=== PATIENT | male | born 1990 ===

== ENCOUNTER 2017-05-26 12:25 | Inpatient (IN) | payer OTHER ==
[2017-05-26] MEDS ORDERED: EPINEPHrine 1:1,000 1 MG/1 ML - 30ML VIAL (INJECTION) SQ ONE ×3 (12:41→17:03)
--- NOTE | 2017-05-26 12:41 | PDOC ---
History of Present Illness - General History Source: Patient Exam Limitations: No Limitations - History of Present Illness Initial Comments: 05/26/17 12:48 The patient is a 26 year old male presenting with his parents, with a significant past medical history of eczema, seasonal allergies and asthma, who presents to the emergency department with an allergic reaction and shortness of breath onset 2 hours prior to presentation. He reports that upon the onset of his symptoms, he took 50 mg of Benadryl, with minimal relief. He states that he usually take divya and uses and inhaler on baseline. He reports that he does feel as if his throat is closing. The patient denies chest pain, headache and dizziness. Denies fever, chills, nausea, vomit, diarrhea and constipation. Denies dysuria, frequency, urgency and hematuria. Allergies: None Past surgical history: None reported Social history: No alcohol, tobacco or drug use reported <Kaushik Kohler - Last Filed: 05/26/17 12:49> <Naye Shin - Last Filed: 05/26/17 22:52> - General Chief Complaint: Allergic Reaction Stated Complaint: ALLERGIC REACTION Time Seen by Provider: 05/26/17 12:38 Past History <Kaushik Kohler - Last Filed: 05/26/17 12:49> - Past Medical History Asthma: Yes Other medical history: seasonal allergy, eczema - Psycho/Social/Smoking Cessation Hx Anxiety: No Suicidal Ideation: No Smoking History: Never smoked Have you smoked in the past 12 months: No Information on smoking cessation initiated: No Hx Alcohol Use: No Drug/Substance Use Hx: No Substance Use Type: None <Naye Shin - Last Filed: 05/26/17 22:52> - Past Medical History Allergies/Adverse Reactions: Allergies Allergy/AdvReac Type Severity Reaction Status Date / Time No Known Allergies Allergy Verified 05/26/17 12:29 Review of Systems - Review of Systems Able to Perform ROS?: Yes Comments:: 05/26/17 12:48 GENERAL/CONSTITUTIONAL: No fever or chills. No weakness. HEAD, EYES, EARS, NOSE AND THROAT: No change in vision. No ear pain or discharge. No sore throat. CARDIOVASCULAR: (+) Shortness of breath. No chest pain RESPIRATORY: No cough, wheezing, or hemoptysis. GASTROINTESTINAL: No nausea, vomiting, diarrhea or constipation. GENITOURINARY: No dysuria, frequency, or change in urination. MUSCULOSKELETAL: No joint or muscle swelling or pain. No neck or back pain. SKIN: No rash NEUROLOGIC: No headache, vertigo, loss of consciousness, or change in strength/ sensation. ENDOCRINE: No increased thirst. No abnormal weight change HEMATOLOGIC/LYMPHATIC: No anemia, easy bleeding, or history of blood clots. ALLERGIC/IMMUNOLOGIC: (+) Diffused hives. <Kaushik Kohler - Last Filed: 05/26/17 12:49> *Physical Exam - Vital Signs Last Vital Signs Temp Pulse Resp BP Pulse Ox 98.0 F 108 H 22 129/61 100 05/26/17 12:30 05/26/17 12:30 05/26/17 12:30 05/26/17 12:30 05/26/17 12:30 - Physical Exam Comments: 05/26/17 12:47 GENERAL: Awake, alert, and fully oriented, in no acute distress HEAD: No signs of trauma, normocephalic, atraumatic EYES: PERRLA, EOMI, sclera anicteric, conjunctiva clear ENT: (+) Swollen uvula. Auricles normal inspection, hearing grossly normal, nares patent, oropharynx clear without exudates. Moist mucosa NECK: Normal ROM, supple, no lymphadenopathy, JVD, or masses LUNGS: No distress, speaks full sentences, clear to auscultation bilaterally HEART: Regular rate and rhythm, normal S1 and S2, no murmurs, rubs or gallops, peripheral pulses normal and equal bilaterally. ABDOMEN: Soft, nontender, normoactive bowel sounds. No guarding, no rebound. No masses EXTREMITIES: Normal inspection, Normal range of motion, no edema. No clubbing or cyanosis. NEUROLOGICAL: Cranial nerves II through XII grossly intact. Normal speech, normal gait, no focal sensorimotor deficits SKIN: Warm, Dry, normal turgor, no rashes or lesions noted. <Kaushik Kohler - Last Filed: 05/26/17 12:49> - Vital Signs Last Vital Signs Temp Pulse Resp BP Pulse Ox 98.0 F 108 H 22 129/61 100 05/26/17 12:30 05/26/17 12:30 05/26/17 12:30 05/26/17 12:30 05/26/17 12:30 <Naye Shin - Last Filed: 05/26/17 22:52> ED Treatment Course - LABORATORY CBC & Chemistry Diagram: 05/26/17 13:20 05/26/17 13:20 <Naye Shin - Last Filed: 05/26/17 22:52> Medical Decision Making - Medical Decision Making 05/26/17 17:21 26-year-old male with a history of environmental allergies presented with HIVES and complaint of throat closing He took by mouth Benadryl before arrival, but his symptoms did not resolve, so he came to the emergency department Past medical history essentially negative with the exception of his environmental allergies Past surgical history none- Exam revealed diffuse hives, torso, face and extremities Mildly swollen uvula No acute wheezing Patient has received epi 3, IV steroids, IV Benadryl and still has uvula swelling.Because of concern for airway issues pt was admitted to ICU after acceptance by Teresa , ICU PA Patient is able to swallow liquids with no problem. He is not tripoding, not in any acute distress 05/26/17 22:49 CAT scan of the neck showed normal uvula, no radiodense foreign body, no abscess or focal fluid collection, unremarkable. Tonsillar fossa, epiglottis, thyroid gland, parotid and submandibular glands. Visualized paranasal sinuses and mastoid air cells clear. Case discussed with Dr. Ragsdale <Naye Shin - Last Filed: 05/26/17 22:52> *DC/Admit/Observation/Transfer - Attestations Scribe Attestion: 05/26/17 12:47 Documentation prepared by Kaushik Kohler, acting as medical dosimetrist for Naye Shin MD <Kaushik Kohler - Last Filed: 05/26/17 12:49> - Discharge Dispostion Admit: Yes <Naye Shin - Last Filed: 05/26/17 22:52> Diagnosis at time of Disposition: Allergy history unknown, Uvular swelling - Discharge Dispostion Condition at time of disposition: Fair
[2017-05-26] MEDS ORDERED: FAMOTIDINE 20 MG/50 ML IVPB 50 ML IVPB ONE ×2 (12:43→12:49)
[2017-05-26] MEDS ORDERED: SODIUM CHLORIDE 1,000 ML IV STA ×2 (12:43→19:36)
[2017-05-26] MEDS ORDERED: methylPREDNISolone NA SUCC 125 MG/2 ML VIAL IVPB ONE (12:43)
[2017-05-26] MEDS ORDERED: ALBUTEROL SO4 2.5/IPRATROPIUM 0.5 INH SOL 3 ML VIAL.NEB. NEB ONE ×2 (12:45→12:48)
[2017-05-26] MEDS ORDERED: EPINEPHrine/PF 1 MG/1 ML (1:1,000) AMPULE ONE ×3 (12:48→17:24)
[2017-05-26] MEDS ORDERED: methylPREDNISolone NA SUCC 125 MG/2 ML VIAL ONE ×2 (12:48→21:11)
[2017-05-26 15:28] LABS: BASOPHIL 0.8 % (0-2.0); EOSINOPHIL 3.7 % (0-4.5); MCH 27.4 pg (25.7-33.7); MCHC 33.1 g/dl (32.0-35.9); MEAN CELL VOLUME 82.9 fl (80-96); MEAN PLT VOLUME 9.3 fl (7.5-11.1); NEUTROPHILS 52.4 % (42.8-82.8); PLATELET COUNT 263 K/MM3 (134-434); RDW 12.9 % (11.9-15.9); WHITE BLOOD COUNT 9.6 K/mm3 (4.0-10.0)
[2017-05-26 16:04] LABS: ALBUMIN 4.2 g/dl (3.4-5.0); ANION GAP 14 (8-16); BILIRUBIN,TOTAL 0.6 mg/dL (0.2-1.0); CALCIUM 8.9 mg/dL (8.5-10.1); CO2 23 mmol/L (21-32); CREATININE 0.9 mg/dL (0.7-1.3); GLUCOSE,RANDOM 103 mg/dL (74-106); SGOT/AST 29 U/L (15-37); SGPT/ALT 26 U/L (12-78); TOT PROT 7.9 g/dl (6.4-8.2)
[2017-05-26 16:05] LABS: ALK PHOS 91 U/L (45-117)
[2017-05-26] MEDS ORDERED: methylPREDNISolone NA SUCC 40 MG/1 ML VIAL IVPB ONE (21:10)
--- NOTE | 2017-05-26 22:07 | HP ---
<Hiram Barbosa - Last Filed: 05/26/17 23:53> CHIEF COMPLAINT: Shortness of breath PCP: None HISTORY OF PRESENT ILLNESS: 26 year old male with a past medical history of seasonal allergies, eczema, and asthma presents with shortness of breath. States that his symptoms began around 10 am. Patient notes that he took 50mg of benadryl at home. Also noted that he felt as if his throat was closing. ER course was notable for: (1) EPI x 3 (2) IV steroids (3) IV benadryl Recent Travel: Denied PAST MEDICAL HISTORY: Seasonal allergies, eczema, asthma PAST SURGICAL HISTORY: None Social History: Smoking: Denied Alcohol: Denied Drugs: Denied Family History: Allergies No Known Allergies Allergy (Verified 05/26/17 12:29) HOME MEDICATIONS: REVIEW OF SYSTEMS CONSTITUTIONAL: Absent: fever, chills, diaphoresis, generalized weakness, malaise, loss of appetite, weight change HEENT: Absent: rhinorrhea, nasal congestion, throat pain, throat swelling, difficulty swallowing, mouth swelling, ear pain, eye pain, visual changes CARDIOVASCULAR: Absent: chest pain, syncope, palpitations, irregular heart rate, lightheadedness , peripheral edema RESPIRATORY: Present: Shortness of breath Absent: cough, dyspnea with exertion, orthopnea, wheezing, stridor, hemoptysis GASTROINTESTINAL: Absent: abdominal pain, abdominal distension, nausea, vomiting, diarrhea, constipation, melena, hematochezia GENITOURINARY: Absent: dysuria, frequency, urgency, hesitancy, hematuria, flank pain, genital pain MUSCULOSKELETAL: Absent: myalgia, arthralgia, joint swelling, back pain, neck pain SKIN: Absent: rash, itching, pallor HEMATOLOGIC/IMMUNOLOGIC: Absent: easy bleeding, easy bruising, lymphadenopathy, frequent infections ENDOCRINE: Absent: unexplained weight gain, unexplained weight loss, heat intolerance, cold intolerance NEUROLOGIC: Absent: headache, focal weakness or paresthesias, dizziness, unsteady gait, seizure, mental status changes, bladder or bowel incontinence PSYCHIATRIC: Absent: anxiety, depression, suicidal or homicidal ideation, hallucinations. PHYSICAL EXAMINATION Vital Signs - 24 hr 05/26/17 05/26/17 05/26/17 12:30 15:20 17:33 Temperature 98.0 F Pulse Rate 108 H Pulse Rate [ 106 H 111 H Apical] Respiratory 22 16 16 Rate Blood Pressure 129/61 Blood Pressure 121/66 118/62 [Right] O2 Sat by Pulse 100 100 100 Oximetry (%) GENERAL: Awake, alert, and fully oriented, in no acute distress. HEAD: Normal with no signs of trauma. EYES: Pupils equal, round and reactive to light, extraocular movements intact, sclera anicteric, conjunctiva clear. No lid lag. EARS, NOSE, THROAT: Ears normal, nares patent, oropharynx clear without exudates. Moist mucous membranes. NECK/THROAT: (+) mild uvular edema. Normal range of motion, supple without lymphadenopathy, JVD, or masses. LUNGS: Breath sounds equal, clear to auscultation bilaterally. No wheezes, and no crackles. No accessory muscle use. HEART: Regular rate and rhythm, normal S1 and S2 without murmur, rub or gallop. ABDOMEN: Soft, nontender, not distended, normoactive bowel sounds, no guarding, no rebound, no masses. No hepatomegaly or splenomegaly. MUSCULOSKELETAL: Normal range of motion at all joints. No bony deformities or tenderness. No CVA tenderness. UPPER EXTREMITIES: 2+ pulses, warm, well-perfused. No cyanosis. No clubbing. No peripheral edema. LOWER EXTREMITIES: 2+ pulses, warm, well-perfused. No calf tenderness. No peripheral edema. NEUROLOGICAL: Cranial nerves II-XII intact. Normal speech. Normal gait. PSYCHIATRIC: Cooperative. Good eye contact. Appropriate mood and affect. SKIN: (+) Warm, dry, normal turgor, normal capillary refill. Hives to bilateral upper extremities. Laboratory Results - last 24 hr 05/26/17 05/26/17 13:20 13:20 WBC 9.6 RBC 5.53 Hgb 15.2 Hct 45.9 MCV 82.9 MCHC 33.1 RDW 12.9 Plt Count 263 MPV 9.3 Neutrophils % 52.4 Lymphocytes % 37.0 Monocytes % 6.1 Eosinophils % 3.7 Basophils % 0.8 Sodium 141 Potassium 3.5 Chloride 104 Carbon Dioxide 23 Anion Gap 14 BUN 18 Creatinine 0.9 Creat Clearance w eGFR > 60 Random Glucose 103 Calcium 8.9 Total Bilirubin 0.6 AST 29 ALT 26 Alkaline Phosphatase 91 Total Protein 7.9 Albumin 4.2 IMAGING: EXAM DATE AND TIME: 2017-05-26 21:33:14.0 EXAM: CT NECK WITHOUT CONTRAST Normal uvula. No abscess or focal fluid collection. No radiodense foreign body. Unremarkable tonsillar fossa, epiglottis, thyroid gland, and parotid and submandibular glands. Visualized paranasal sinuses and mastoid air cells clear. Reversal of cervical lordosis, possibly due to positioning or muscle spasm. THIS DOCUMENT HAS BEEN ELECTRONICALLY SIGNED Natalia Hanna M.D. 2016 22:38 EST ASSESSMENT/PLAN: 26 year old male with a past medical history of allergies, eczema, and asthma presents with shortness of breath. 1. Severe allergic reaction with uvula edema - Stat ct soft tissue neck - Benadryl PRN - s/p pepcid and solumedrol - Continue with solumedrol - F/u results of ct soft tissue neck - Nebs PRN for shortness of breath - F/u chest x-ray - If continued shortness of breath continue with epi - Consider ENT consult depending on results of CT 2. Asthma no wheezing - Albuterol prn 3. DVT PPX - low risk - SCDs - Ambulate Admit to ICU. Documentation prepared by Hiram Barbosa, acting as medical assembler for Dr. Reggie Ragsdale MD. <Reggie Ragsdale - Last Filed: 05/27/17 06:53> Visit type - Emergency Visit Emergency Visit: Yes ED Registration Date: 05/26/17 Care time: The patient presented to the Emergency Department on the above date and was hospitalized for further evaluation of their emergent condition. - New Patient This patient is new to me today: Yes Date on this admission: 05/27/17 - Critical Care Critical Care patient: Yes Total Critical Care Time (in minutes): 38 Critical Care Statement: The care of this patient involved high complexity decision making to prevent further life threatening deterioration of the patient 's condition and/or to evalute & treat vital organ system(s) failure or risk of failure.
[2017-05-27 00:57] VITALS: BMI 26.6
[2017-05-27] MEDS ORDERED: ALBUTEROL SO4 0.083% IH SOL 2.5 MG/3 ML VIAL.NEB. NEB PRN (01:00)
--- NOTE | 2017-05-27 01:09 | CONSULT ---
Consult Consult Specialty:: Critical care Reason for Consultation:: Allergic reaction - History of Present Illness Chief Complaint: allergic reaction History of Present Illness: This is a 26 year old with pmhx of asthma and seasonal allergies who presented to the ED with diffuse rash and sensation of throat swelling. Patient reports no new medications or food out of the ordinary. He was treated with benedryl, epinepherine IM, solumedrol, and transferred to the ICU. Hemodynamics remained stable throughout. In the ICU he reports consistent feeling of mild throat swelling, though has no difficulty speaking or swallowing. Reports rash comes and goes. He was started on a regimen of benedryl, solumedrol, famotidine, and PRN albuterol. 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: Alzheimer's, CVA, Dementia, Migraine, Multiple Sclerosis, Peripheral Neuropathy, Parkinson's, Seizure, Syncope, TIA, Vertigo, Other Cardio/Vascular: No: AFIB, Aneurysm, Aortic Insufficiency, Aortic Stenosis, CAD , CHF, Deep Vein Thrombosis, HTN, Hyperlipdemia, [place], Mitral Insufficiency, Mitral Stenosis, Murmur, Pulmonary Hypertension, Other Pulmonary: Yes: Asthma Gastrointestinal: No: Ascites, Cancer, Constipation, Crohn's Disease, Diverticulitis, Diverticulosis, Esophageal Varices, Gastritis, GERD, GI Bleed, Hemorrhoids, Hiatal Hernia, Inflamatory Bowel Disease, Irritable Bowel Disease, Pancreatitis, Peptic Ulcer Disease, Ulcerative Colitis, Other Hepatobiliary: No: Cirrhosis, Cholelithiasis, Cholecystitis, Choledocholithiasis , Hepatitis A, Hepatitis B, Hepatitis C, Other Renal/: No: Renal Failure, Renal Inusuff, BPH, Cancer, Hematuria, Hemodialysis , Neurogenic Bladder, Renal Calculi, UTI, Other Heme/Onc: No: Anemia, B12 Deficiency, Bleeding Disorder, Cancer, Current Chemotherapy, Current Radiation Therapy, Hemochromatosis, Hypercoaguable State, Myeloproliferative Synd, Sickle Cell Disease, Sickle Cell Trait, Thrombocytopenia, Other Infectious Disease: No: AIDS, C-Diff, Herpes Zoster, HIV, MRSA, STD's, Tuberculosis, VREF, Other Psych: No: Addictions, Anxiety, Bipolar, Depression, Panic, Psychosis, Schizophrenia, Other Musculoskeletal: No: Bursitis, Chronic low back pain, Hemiparesis, Hemiplegia, Osteoarthritis, Paraplegia, Other Rheumatology: No: Fibromyalgia, Gout, Lupus, Rheumatoid Arthritis, Sarcoidosis, Vasculitis, Other ENT: No: Allergic Rhinitis, Sinusitis, Other Endocrine: No: [place]'s Disease, [place]'s Disease, Diabetes Insipidus, Diabetes Mellitus, Hyperparathyroidism, Hyperthyroidism, Hypothyroidism, Osteopenia, SIADH, Other Dermatology: Yes: Eczema - Past Surgical History Past Surgical History: No: None, AAA Repair, AICD, Amputation, Appendectomy, Arthrosocopy, AV Fistula/Graft, Bariatric Surgery, Breast Biopsy, Bypass, CABG, Carotid Endarterectomy, Cataract Removal, Cholecystectomy, Colectomy, Colonoscopy, Colostomy, Craniotomy, , Cystectomy, Hernia Repair, Hysterectomy, Ileal Conduit, Ileosotomy, Joint Replacement, Kidney Transplant, Laminectomy, Liver Transplant, Mastectomy, Nephrectomy, Oopherectomy, Orchiectomy, Permanent Pacemaker, Prostatectomy, Splenectomy, Stent, Thoracotomy , TURP, Tonsillectomy, Tubal Ligation, Upper Endoscopy, Valve Replacement, Vasectomy, Vein Stripping/Ligation - Alcohol/Substance Use Hx Alcohol Use: Yes (social) History of Substance Use: reports: None - Smoking History Smoking history: Never smoked Have you smoked in the past 12 months: No Home Medications - Allergies Allergies/Adverse Reactions: Allergies Allergy/AdvReac Type Severity Reaction Status Date / Time No Known Allergies Allergy Verified 05/26/17 12:29 Physical Exam Vital Signs: Vital Signs Temperature 98 F 05/27/17 00:43 Pulse Rate 108 H 05/27/17 00:43 Respiratory Rate 22 05/27/17 00:43 Blood Pressure 126/64 05/27/17 00:43 O2 Sat by Pulse Oximetry (%) 98 05/27/17 00:43 Constitutional: Yes: Well Nourished, No Distress Eyes: Yes: WNL HENT: Yes: WNL Neck: Yes: Other (mild swelling) Respiratory: Yes: WNL Gastrointestinal: Yes: WNL ...Rectal Exam: Yes: WNL, Deferred Renal/: Yes: WNL Peripheral Pulses WNL: Yes Neurological: Yes: WNL ...Motor Strength: WNL Psychiatric: Yes: WNL Assessment/Plan This is a 26 yo man who presents with new onset rash, pruritis, and sensation of throat swelling. -Famotidine 20mg daily -Benedryl 50mg IV q6h -Solumedrol 80mg daily, wean -Albuterol PRN -NPO for now -Monitor -If worsens will reintroduce epinepehrine
[2017-05-27] MEDS ORDERED: FAMOTIDINE 20 MG/50 ML IVPB 50 ML IVPB SCH (06:00)
[2017-05-27] MEDS: methylPREDNISolone NA SUCC 125 MG/2 ML VIAL IVPB SCH ×2 (06:33→09:13)
[2017-05-27 06:40] LABS: MCH 27.3 pg (25.7-33.7); MCHC 33.2 g/dl (32.0-35.9); MEAN CELL VOLUME 82.4 fl (80-96); MEAN PLT VOLUME 8.9 fl (7.5-11.1); PLATELET COUNT 307 K/MM3 (134-434); RDW 13.1 % (11.9-15.9); WHITE BLOOD COUNT 16.2 K/mm3 (4.0-10.0)
[2017-05-27 07:09] LABS: ANION GAP 9 (8-16); CALCIUM 9.3 mg/dL (8.5-10.1); CO2 25 mmol/L (21-32); CREATININE 0.8 mg/dL (0.7-1.3); GLUCOSE,RANDOM 126 mg/dL (74-106)
--- NOTE | 2017-05-27 07:31 | PN ---
Physical Exam: SUBJECTIVE: Patient seen and examined. denies chest pain, difficulty breathing, palpitations, itching, rash, lightheadedness, abdominal pain, vomiting, wheezing. feels better since admission. when drinking water felt some "scratching" at his throat. takes symbicort daily, may have missed few days. 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 He started to itch and notes rash in anticubital fossas, behind knees, and his neck - "hives". he felt hot at home and took a cold shower, had some cough without vomiting. did not have visible facial edema or swellin of tongue. No drooling, was always able to swallow. no difficulty with swallowing water for me this morning, no pain or cough. OBJECTIVE: Vital Signs Period Temp Pulse Resp BP Sys/[place] Pulse Ox Last 24 Hr 98 F-98.1 F 81-112 15-22 94-126/47-77 98-100 GENERAL: The patient is awake, alert, and fully oriented, in no acute distress. HEAD: Normal with no signs of trauma. EYES: PERRL, extraocular movements intact, sclera anicteric, conjunctiva clear. No ptosis. ENT: Ears normal, nares patent, oropharynx clear without exudates/erythema/ lesions, moist mucous membranes. NECK: Trachea midline, full range of motion, supple. no LAD, no thyromegaly LUNGS: Breath sounds equal, clear to auscultation bilaterally, no wheezes, no crackles, no accessory muscle use. HEART: Regular rate and rhythm, S1, S2 without murmur, rub or gallop. ABDOMEN: Soft, nontender, nondistended, normoactive bowel sounds, no guarding, no rebound, no hepatosplenomegaly, no masses. EXTREMITIES: 2+ radial and DP pulses, warm, well-perfused, no edema. NEUROLOGICAL: Cranial nerves II through XII grossly intact. Normal speech. SKIN: Warm, dry, normal turgor, no rashes noted. few excoriations in neck without surrounding erythema or discharge Laboratory Results - last 24 hr 05/27/17 05/27/17 05:20 05:20 WBC 16.2 H D RBC 5.16 Hgb 14.1 Hct 42.5 MCV 82.4 MCHC 33.2 RDW 13.1 Plt Count 307 MPV 8.9 Sodium 140 Potassium 4.3 D Chloride 106 Carbon Dioxide 25 Anion Gap 9 BUN 9 D Creatinine 0.8 Random Glucose 126 H D Calcium 9.3 Active Medications Generic Name Dose Route Start Last Admin Trade Name Freq PRN Reason Stop Dose Admin Albuterol Sulfate 1 amp 05/27/17 01:00 Ventolin 0.083% Nebulizer Soln - NEB Q4H PRN SHORT OF BREATH/WHEEZING Chlorhexidine Gluconate 1 applic 05/27/17 22:00 Hibiclens For Decolonization - TP HS NEDA Diphenhydramine HCl 50 mg 05/27/17 01:00 Benadryl Injection - IVPB Q6H PRN Famotidine/Sodium Chloride 50 mls @ 100 mls/hr 05/27/17 06:00 05/27/17 06:33 Pepcid 20 Mg Premixed Ivpb - IVPB 100 mls/hr DAILY@0600 NEDA Administration Methylprednisolone Sodium Succinate 80 mg 05/27/17 06:00 05/27/17 06:33 Solu-Medrol - IVPB 80 mg DAILY NEDA Administration Mupirocin 1 applic 05/27/17 10:00 Bactroban Ointment (For Decolonization) - NS 06/01/17 09:59 BID NEDA ASSESSMENT/PLAN: 26 yr old man with asthma presented to the ED with itching and c/o feeling like this throat was closing, transferred to the ICU for close monitoring. Pulmonary ventolin q4hr prn for wheezing benadryl 50mg q6h prn solumedrol 80mg ivpb daily s/p epi, solumdero [address] scan without pharyngeal obstruction cxy without pathology Cardiovasculay normotensive, hemodynamically stable Hematological leucocytosis - pt is afebrile, no dysuria, cxy clear, likely due to steroid use monitor off abx DVT - low risk Diet: regular diet Dispo: can be monitored out of the ICU, complete 5-day taper of steroids(80mg today then day 2: 60,Day 3: 40, Day 4: 20, day 5:10, stop) recommend outpatient follow-up with PCP and retail support associate for testing. Visit type - Emergency Visit Emergency Visit: No - New Patient This patient is new to me today: Yes Date on this admission: 06/26/17 - Critical Care Critical Care patient: Yes Total Critical Care Time (in minutes): 35 Critical Care Statement: The care of this patient involved high complexity decision making to prevent further life threatening deterioration of the patient 's condition and/or to evalute & treat vital organ system(s) failure or risk of failure.
[2017-05-27] MEDS ORDERED: MUPIROCIN 2% TOPICAL OINTMENT FOR DECOLONIZATION NS SCH (10:00)
[2017-05-27 10:11] VITALS: TEMP 98.3
[2017-05-27 12:09] VITALS: BP 107/69; PULSE 96
--- NOTE | 2017-05-27 13:55 | DS ---
Physical Exam: SUBJECTIVE: Patient seen and examined in the ICU. He denies any pain or discomfort. He denies shortness of breath or difficulty swallowing. He was eating his lunch during exam. OBJECTIVE: Appears stable, no difficulty swallowing Tolerating room air, no signs of dyspnea Lungs clear to auscultation, no wheezing Will d/c with outpatient follow up. Will need prednisone taper as well as Epi pen Recommended that he follow up with [employer], pt in agreement. No facial edema or swelling of tongue. No drooling, swallowing without difficulty Vital Signs Period Temp Pulse Resp BP Sys/[place] Pulse Ox Last 24 Hr 98 F-98.3 F 81-112 15-27 94-127/47-77 98-100 PHYSICAL EXAM GENERAL: The patient is awake, alert, and fully oriented, in no acute distress. HEAD: Normal with no signs of trauma. EYES: PERRL, extraocular movements intact, sclera anicteric, conjunctiva clear. ENT: Ears normal, nares patent, oropharynx clear without exudates, moist mucous membranes. NECK: Trachea midline, full range of motion, supple. LUNGS: Breath sounds equal, clear to auscultation bilaterally, no wheezes, no crackles, no accessory muscle use. HEART: Regular rate and rhythm, S1, S2 without murmur, rub or gallop. ABDOMEN: Soft, nontender, nondistended, normoactive bowel sounds, no guarding, no rebound, no hepatosplenomegaly, no masses. EXTREMITIES: no edema. NEUROLOGICAL: Normal speech, gait not observed. PSYCH: Normal mood, normal affect. SKIN: Warm, dry, normal turgor, no rashes or lesions noted. LABS Laboratory Results - last 24 hr 05/27/17 05/27/17 05:20 05:20 WBC 16.2 H D RBC 5.16 Hgb 14.1 Hct 42.5 MCV 82.4 MCHC 33.2 RDW 13.1 Plt Count 307 MPV 8.9 Sodium 140 Potassium 4.3 D Chloride 106 Carbon Dioxide 25 Anion Gap 9 BUN 9 D Creatinine 0.8 Random Glucose 126 H D Calcium 9.3 HOSPITAL COURSE: Date of Admission:05/26/17 Date of Discharge: 05/27/17 Imagin05/27/2017: Chest xray: No evidence of active pulmonary disease 05/26/2017: soft tissue neck CT: No dominant neck mass seen, no adenopathy, normal epiglottis, normal vocal cords Patient is a 26 year old man with a past medical history of asthma. He presented to the ED on 05/26/2017 with generalized itching and feeling like this "throat was closing". He was admitted to the ICU for close monitoring of his acute condition. Pulmonary: Anaphylaxis - resolved Assessment/Plan: No wheezing noted on exam. Treated with Solumedrol 80mg ivpb, will transition to Prednisone with a 5 day taper Continue Protonix while on steroids Recommended a follow up with [employer] Epi pen ordered to his home pharmacy On exam patient was able to swallow his meals, reports no difficulty swallowing Stable on room air Hematology: Leukocytosis - likely secondary to steriod use Patient is afebrile, denies any malaise, non toxic appearing Follow up with PCP as outpatient Disposition: Stable for home discharge with close PCP follow up as well as [employer] follow up. Patient in agreement. Minutes to complete discharge: 60 Discharge Summary Reason For Visit: ALLERGY HISTORY UNKNOWN, UVULAR SWELLING Current Active Problems Allergy history unknown (Acute) Uvular swelling (Acute) Condition: Stable - Instructions Diet, Activity, Other Instructions: Mr. Sanchez: Please take the prednisone as follows: Please make an appointment to see your PCP within 1 week after discharge. It is recommended that you follow up with an [employer] worker who will do further testing. Date: dose: 05/28/2017 Prednisone 60mg @ 9 am 05/29/2017 Prednisone 40mg @ 9am 05/30/2017 Prednisone 30mg @ 9am 05/31/2017 Prednisone 20mg @ 9am 06/01/2017 Prednisone 10mg @ 9am (last day) Then stop taking Prednisone on 06/01/2017 Please note that an EPI pen has been called into your pharmacy. Please take the Protonix daily while taking the Prednisone then stop, Protonix will help protect your GI tract while on the steriods. Please call with any questions. Please return to the ER if you have worsening of your symptoms. Maylin Lovell NP [phone] Disposition: HOME This patient is new to me today: Yes Date on this admission: 05/27/17 Emergency Visit: Yes ED Registration Date: 05/26/17 Care time: The patient presented to the Emergency Department on the above date and was hospitalized for further evaluation of their emergent condition. Critical Care patient: Yes Total Critical Care Time (in minutes): 60 Critical Care Statement: The care of this patient involved high complexity decision making to prevent further life threatening deterioration of the patient 's condition and/or to evalute & treat vital organ system(s) failure or risk of failure. - Discharge Referral Referred to [facility] No
[2017-05-27] MEDS ORDERED: CHLORHEXIDINE GLUCONATE 4% CLEANSER FOR DECOLONIZATION TP SCH (22:00)
== END 2017-05-27 15:00 | disposition home or self-care (01) | DRG 916 ==
LOC: JER 12:25 → JERBED 21:38 → JICU 05-27 00:35
PROVIDERS: ADMIT Internal Medicine; ATTEND Nurse Practitioner Family
DX: T78.2XXA Anaphylactic shock, unspecified, initial encounter (principal); D72.828 Other elevated white blood cell count; J45.909 Unspecified asthma, uncomplicated; L30.9 Dermatitis, unspecified; J30.2 Other seasonal allergic rhinitis
CPT/HCPCS: 36415; 70490-TC; 71010-TC; 80048; 80053; 85025; 85027; 99285-25